=== PATIENT | female | born 1970 | race Two or more races ===

== ENCOUNTER 2023-12-31 09:09 | Emergency (ER) | payer OTHER ==
[2023-12-31 09:16] VITALS: TEMP 98.8; BMI 30.2
[2023-12-31] MEDS: ACETAMINOPHEN 1000 MG/100 ML BAG IVPB ONE (10:07)
[2023-12-31] MEDS: SODIUM CHLORIDE 0.9% 500 ML INFUS.BAG IV ONE (10:08)
[2023-12-31] MEDS ORDERED: ACETAMINOPHEN INJECTION 100 ML IVPB ONE (10:09)
[2023-12-31 10:15] LABS: BASO % 0.6 % (0-2.0); EOS % 0.6 % (0-4.5); HEMATOCRIT 35.2 % (32.4-45.2); LYMPH % 31.4 % (8-40); MCH 29.7 pg (25.7-33.7); MCHC 34.3 g/dl (32.0-36.0); MEAN CELL VOLUME 86.7 fl (80-96); MEAN PLT VOLUME 8.3 fl (7.5-11.1); MONO % 9.5 % (3.8-10.2); NEUT % 57.9 % (42.8-82.8); PLATELET COUNT 234 10^3/uL (134-434); RBC 4.06 M/mm3 (3.60-5.2); RDW 15.3 % (11.6-15.6); WHITE BLOOD COUNT 6.8 K/mm3 (4.0-10.0)
[2023-12-31 10:22] LABS: INR 1.02 (0.83-1.09); PROTHROMBIN TIME (PATIENT) 11.5 SEC (9.7-13.0)
[2023-12-31 10:25] LABS: ACTIVATED PTT 37.2 SECONDS (25.2-36.5)
[2023-12-31 10:31] LABS: POTASSIUM 3.6 mmol/L (3.5-5.1)
[2023-12-31 10:33] LABS: ALBUMIN 3.5 g/dl (3.4-5.0); BLOOD UREA NITROGEN 17.9 mg/dL (7-18); CALCIUM 8.9 mg/dL (8.5-10.1)
[2023-12-31 10:38] LABS: BILIRUBIN,TOTAL 0.3 mg/dL (0.2-1); TOT PROT 7.6 g/dl (6.4-8.2)
[2023-12-31 10:57] VITALS: RESP 16
[2023-12-31 11:47] VITALS: BP 134/82; PULSE 62
== END 2023-12-31 14:38 | disposition home or self-care (01) ==
LOC: JER 09:09
PROC: 3E033NZ Introduction of Analgesics, Hypnotics, Sedatives into Peripheral Vein, Percutaneous Approach (ICD-10-PCS; principal; 2023-12-31)
DX: R07.89 Other chest pain (principal); M25.512 Pain in left shoulder; Z20.822 Contact with and (suspected) exposure to COVID-19
CPT/HCPCS: 0241U-QW; 36415; 71045-TC-FY; 80053; 84484; 85025; 85610; 85730; 93005; 93010; 99285-25; J0131